=== PATIENT | female | born 1955 | race Caucasian/White ===

== ENCOUNTER → 2018-04-09 | Outpatient (CLI) | payer BC ==
[~2018-04-09] MED LIST: ALBU8.5H12 IH; CEFU500T50 PO; FLU60SYR30 IM ONLY; FLUT9.9S; HYDR-4309 PO; IBUP800T37 PO; LOR75 PO; PRED-1 PO
--- NOTE | 2018-04-09 12:01 | RADIOLOGY IMAGING REPORT ---
FACILITY: [facility] - [place] PATIENT NAME: Cathleen Marquez : 1955 MR: [id number] V: [id number] EXAM DATE: ORDERING PHYSICIAN: JUAN HSU TECHNOLOGIST: Location: [facility] - [place] Patient: Cathleen Marquez : 1955 Visit/Account:[id number] Date of Sevice: 04/09/2018 VENOUS DOPP LOW LEFT EXTREMITY ADDITIONAL PERTINENT HISTORY: Right leg pain. COMPARISON STUDIES: None. FINDINGS: Grayscale compression, duplex and color Doppler interrogation of the right lower extremity deep veins from common femoral vein to proximal calf was performed. The greater saphenous vein in the ipsilater al proximal thigh was evaluated using similar technique. Right lower extremity: Common femoral vein: Negative. Femoral vein: Negative. Deep femoral vein: Negative. Popliteal vein: Negative. Visualized deep calf veins Negative. Greater saphenous vein in the proximal thigh: Negative. Popliteal fossa: negative IMPRESSION: 1. No evidence of deep venous thrombosis involving the right lower extremity. Report Dictated By: Juan Kaur MD at 04/09/2018 11:56 AM Report E-Signed By: Juan Kaur MD at 04/09/2018 11:57 AM WSN:[id number]
== END ==
LOC: US 10:18
PROVIDERS: ATTEND Physician Assistant
DX: M79.662 Pain in left lower leg (principal)